=== PATIENT | male | born 1940 | race Caucasian/White ===

== ENCOUNTER → 2016-09-27 | Outpatient (CLI) | payer MEDICARE, BC ==
[2016-09-27 12:46] LABS: Blood Urea Nitrogen 16 mg/dL (9-20); Non-African American GFR(MDRD) >60 (>60 ml/min/1.73 sqM)
--- NOTE | 2016-09-27 14:15 | CT ---
EXAMINATION TYPE: CT ChestAbdPelvis w con DATE OF EXAM: 09/27/2016 2:01 PM COMPARISON: MRCP July 29, 2016. PET/CT June 05, 2016. HISTORY: Pancreatic CA progress study. CT DLP: 2277 mGycm. Automated Exposure Control for Dose Reduction was Utilized. CONTRAST: CT scan of the thorax, abdomen and pelvis is performed with IV Contrast, patient injected with 100 mL of Omnipaque 300. FINDINGS: LUNGS: Right midlung nodule is redemonstrated slightly larger in size measuring 1.3 x 0.8 cm on axial image 17. There is background of mild emphysematous change. New 6 x 5 mm scarlike opacity posterior right lower lobe on axial image 27 is noted. Respiratory motion artifact is seen making evaluation espinoza boptimal. There is linear scarring and/or atelectasis in the right middle lobe near diaphragm and ant erior right lower lobe redemonstrated more prominent versus prior. Additional linear scarring and/or atelectasis in both lung bases along diaphragm is present. No new left-sided nodularity or mass is id entified. No pleural effusion or pneumothorax is seen bilaterally. MEDIASTINUM: There is redemonstration of abnormal right hilar mass or adenopathy measuring 2.2 x 1.9 cm on axial image 24 felt stable or slightly larger versus prior exam. No new suspicious thoracic lym ph nodes are seen. No cardiomegaly or pericardial effusion is seen. Three-vessel coronary artery c alcification is redemonstrated. OTHER: No additional significant abnormality is seen. LIVER/GB: Liver is low dense consistent with fatty infiltration. PANCREAS: No suspicious pancreatic mass or ductal dilatation is seen. SPLEEN: Tiny nodular splenule anterior to spleen is noted. ADRENALS: No significant abnormality is seen. KIDNEYS: There is 1.5 cm simple appearing cysts or pole level right kidney redemonstrated. Mild nonsp ecific perinephric fat stranding likely on basis of chronic medical renal disease is noted. BOWEL: Prominent sigmoid colonic diverticulosis is again seen. GENITAL ORGANS: Central zone calcifications are seen in slightly prominent prostate gland bulging on bladder base, clinical correlation for BPH is advised.. LYMPH NODES: No greater than 1cm abdominal or pelvic lymph nodes are appreciated. OSSEOUS STRUCTURES: There is prominent disc space narrowing with endplate sclerosis and mild to moder ate spurring left L4-L5 level. OTHER: There is atherosclerotic change of aorta and branch vessels. Aneurysm measuring up to 3.4 cm i n transverse diameter on axial image 79 is redemonstrated. Small fat-containing umbilical hernia is r edemonstrated. IMPRESSION: Right midlung nodule and right hilar adenopathy redemonstrated both felt slightly larger versus prior PET/CT. A new 6 x 5 mm scarlike opacity posterior right lower lobe is noted and can be f ollowed. No new suspicious mass or adenopathy is otherwise clearly evident. Pancreas felt within norm al limits.
== END | disposition home or self-care (01) ==
LOC: RADCTMAIN 11:15
PROVIDERS: ATTEND Internal Medicine Hematology & Oncology
DX: C34.90 Malignant neoplasm of unspecified part of unspecified bronchus or lung (principal); C25.9 Malignant neoplasm of pancreas, unspecified
CPT/HCPCS: 82565; 84520; 71260; 74177; 36415; Q9967

== ENCOUNTER → 2016-11-22 | Outpatient (CLI) | payer MEDICARE, BC ==
[2016-11-22 09:51] LABS: Blood Urea Nitrogen 15 mg/dL (9-20); Non-African American GFR(MDRD) >60 (>60 ml/min/1.73 sqM)
--- NOTE | 2016-11-22 11:55 | CT ---
EXAMINATION TYPE: CT ChestAbdPelvis w con DATE OF EXAM: 11/22/2016 11:38 AM COMPARISON: CT cap September 27, 2016. PET CT June 05, 2016. HISTORY: Patient has no complaints at time of service. Follow up study for known lung CA. CT DLP: 1601.2 mGycm. Automated Exposure Control for Dose Reduction was Utilized. CONTRAST: CT scan of the thorax, abdomen and pelvis is performed with IV Contrast, patient injected with 100 mL of Omnipaque 300. FINDINGS: LUNGS: Nodule laterally right upper lung is stable measuring 14 x 9 mm on axial image 19. There is ba ckground of mild emphysematous change with apical subpleural reticulation and bleb formation. There i s additional linear scarring or atelectasis in both lung bases near diaphragm redemonstrated. Slightl y more nodular consolidation anteriorly right middle lobe near diaphragm is felt stable or slightly m ore prominent on axial image 40 and can be followed. No new parenchymal nodule or mass is identified bilaterally. However there are new suspicious pleural-based nodules indicating the chest wall anterol aterally in the right midlung, for reference lesion measures 1.4 x 1.3 cm on axial image 26. No pleur al effusion or pneumothorax is present. MEDIASTINUM: There is persistent abnormal right hilar lymph node measuring 2.2 x 1.8 cm felt stable from prior exam. Coronary artery calcification is redemonstrated. No cardiomegaly or pericardial ef fusion is seen. OTHER: No additional significant abnormality is seen. LIVER/GB: Liver remains low dense suggesting fatty infiltration. PANCREAS: No significant abnormality is seen. SPLEEN: No significant abnormality is seen. ADRENALS: No significant abnormality is seen. KIDNEYS: There is simple appearing 1.5 cm cyst lower pole level right kidney redemonstrated laterally on image 81 felt stable. BOWEL: Oral contrast reaches level of sigmoid colon. There is no suspicious small or large bowel dila tation seen. Prominent Sigmoid colonic diverticulosis is redemonstrated, there is no CT evidence for acute diverticulitis. Normal-appearing appendix is seen from cecum. GENITAL ORGANS: Central zone calcifications are seen in upper limits of normal size prostate gland. LYMPH NODES: No greater than 1cm abdominal or pelvic lymph nodes are appreciated. OSSEOUS STRUCTURES: There are subchondral cystic change and joint space loss in both hips. There is f acet arthropathy lower lumbar levels. There is multilevel spurring in the spine seen. OTHER: There is moderate to severe plaque in the aorta extending into pelvic branch vessels. Ectasia is present. There is focal aneurysm just above bifurcation measuring 3.4 x 3.2 cm on axial image 81 r edemonstrated. IMPRESSION: Stable right upper lobe nodule and right hilar malignant adenopathy. New pleural-based me tastatic lesions in the right lung are felt present however.
== END ==
LOC: RADCTMAIN 09:13
PROVIDERS: ATTEND Internal Medicine Hematology & Oncology
DX: C78.01 Secondary malignant neoplasm of right lung (principal)
CPT/HCPCS: 82565; 84520; 71260; 74177; 36415; Q9967

== ENCOUNTER → 2017-01-18 | Outpatient (CLI) | payer MEDICARE, BC ==
--- NOTE | 2017-01-18 13:04 | XR ---
EXAMINATION TYPE: XR chest 2V DATE OF EXAM: 01/18/2017 COMPARISON: CT cap November 22, 2016. Chest x-ray July 05, 2016. HISTORY: Shortness of breath, history of right-sided partial pneumonectomy TECHNIQUE: Frontal and lateral views of the chest are obtained. FINDINGS: There is right basilar scarring redemonstrated. There is no new suspicious focal air space opacity, pleural effusion, or pneumothorax seen. Pleural-based nodularity and suspicious right hilar fullness on recent CT is less well seen on plain films and is worrisome for neoplasm. The cardiac destiny houette size is stable and within normal limits. The osseous structures are intact. IMPRESSION: No acute cardiopulmonary process.
--- NOTE | 2017-01-19 09:59 | ECHOF ---
Referral Reason:Shortness of breath R05.05, R05 Cough MEASUREMENTS -------- HEIGHT: 165.1 cm WEIGHT: 95.3 kg BP: RVIDd: 3.1 cm (< 3.3) IVSd: 1.3 cm (0.6 - 1.1) LVIDd: 3.6 cm (3.9 - 5.3) LVPWd: 1.3 cm (0.6 - 1.1) IVSs: 1.7 cm LVIDs: 3.1 cm LVPWs: 0.9 cm LA Diam: 3.8 cm (2.7 - 3.8) LAESV Index (A-L): 19.52 ml/m Ao Diam: 3.1 cm (2.0 - 3.7) AV Cusp: 1.9 cm (1.5 - 2.6) LA Diam: 4.0 cm (2.7 - 3.8) MV EXCURSION: 20.651 mm (> 18.000) MV EF SLOPE: 72 mm/s (70 - 150) EPSS: 0.5 cm MV E León: 0.32 m/s MV DecT: 330 ms MV A León: 0.90 m/s MV E/A Ratio: 0.35 RAP: 5.00 mmHg RVSP: 22.41 mmHg FINDINGS -------- Sinus rhythm. This was a technically adequate study. There is mild concentric left ventricular hypertrophy. Overall left ventricular systolic function is normal with, an EF between 65 - 70 %. The right ventricle is normal in size. Normal LA size by volume 22+/-6 ml/m2. The right atrial size is normal. There is mild aortic valve sclerosis. There is no evidence of aortic regurgitation. Mild mitral annular calcification present. Mild mitral regurgitation is present. Mild tricuspid regurgitation present. There is no evidence of pulmonary hypertension. The right ventricular systolic pressure, as measured by Doppler, is 22.41mmHg. There is no pulmonic regurgitation present. The aortic root size is normal. There is no pericardial effusion. CONCLUSIONS -------- 1. There is mild concentric left ventricular hypertrophy. 2. Overall left ventricular systolic function is normal with, an EF between 65 - 70 %. 3. There is mild aortic valve sclerosis. 4. Mild mitral annular calcification present. 5. Mild mitral regurgitation is present. 6. Mild tricuspid regurgitation present. 7. There is no evidence of pulmonary hypertension. 8. The right ventricular systolic pressure, as measured by Doppler, is 22.41mmHg. PRINCIPAL CONSULTANT: Elizabeth Choudhury RDCS
== END | disposition home or self-care (01) ==
LOC: RADECHMAIN 12:44
PROVIDERS: ATTEND Internal Medicine
DX: R05 Cough (principal); R06.02 Shortness of breath; I51.7 Cardiomegaly; I35.0 Nonrheumatic aortic (valve) stenosis; I07.2 Rheumatic tricuspid stenosis and insufficiency; I38 Endocarditis, valve unspecified
CPT/HCPCS: 71020; 93306

== ENCOUNTER → 2017-03-07 | Outpatient (CLI) | payer MEDICARE, BC ==
[2017-03-07 12:00] LABS: Blood Urea Nitrogen 11 mg/dL (9-20); Non-African American GFR(MDRD) >60 (>60 ml/min/1.73 sqM)
--- NOTE | 2017-03-07 13:57 | CT ---
EXAMINATION TYPE: CT ChestAbdPelvis w con DATE OF EXAM: 03/07/2017 COMPARISON: CT cap November 22, 2016. PET/CT June 05, 2016 HISTORY: Follow up to lung CA CT DLP: 2148 mGycm. Automated Exposure Control for Dose Reduction was Utilized. CONTRAST: CT scan of the thorax, abdomen and pelvis is performed with oral and with IV Contrast, patient inject ed with 100 mL of Omnipaque 300. FINDINGS: LUNGS: Focal parenchymal scarring in the right middle lobe near diaphragm is redemonstrated. Just sup erior to this there is enlarging pleural or chest wall based lesion or 2 adjacent lesions measuring 3.2 x 2.0 cm on axial image 24 in the anterolateral right chest wall. There are new adjacent smaller nodules lateral and inferior to this which appear to correlate with possible linear scar or site of surgery. The spiculated nodule right upper lobe measuring 1.5 x 0.9 cm on axial image 18 is not significantly changed from prior study. There is background mild emphysematous change with mild apical scarring redemonstrated. MEDIASTINUM: There is persistent enlarged right suprahilar lymph node with central necrosis measurin g 2.1 x 1.9 cm on axial image 26 not significantly changed from prior study. Prominent right hilar ly mph node inferior lateral to this on axial image 30 is stable. There is redemonstration of prominent but subcentimeter paratracheal and AP window lymph nodes. No cardiomegaly or pericardial effusion is seen. Coronary artery calcification is redemonstrated. OTHER: No additional significant abnormality is seen. LIVER/GB: Liver remains diffusely low dense consistent with fatty infiltration. PANCREAS: No significant abnormality is seen. SPLEEN: No significant abnormality is seen. ADRENALS: No significant abnormality is seen. KIDNEYS: There is a 1.5 cm simple appearing cyst laterally lower pole level right kidney redemonstrat ed. BOWEL: The oral contrast reaches level of sigmoid colon. Sigmoid colonic diverticulosis is redemonstr ated without convincing CT evidence for acute diverticulitis. There is no suspicious small or large b owel dilatation seen. GENITAL ORGANS: Central zone calcifications are seen in normal size prostate gland. LYMPH NODES: No greater than 1cm abdominal or pelvic lymph nodes are appreciated. OSSEOUS STRUCTURES: Osseous structures are demineralized. Multilevel spurring in the spine is present . There is moderate joint space loss with subchondral cystic change in both hips. OTHER: There is moderate atherosclerotic change seen and ectatic descending aorta. Aorta measures up to 3.5 cm in diameter on axial image 81 just above bifurcation, not significantly changed from prior study. IMPRESSION: Further progression in pleural or chest wall based masses with chest wall spread inferior ly and laterally in a linear fashion is suggestive of tumor spread along incision site of surgery. Cl inical correlation advised. Other findings stable a right upper lung spiculated nodule and right supr ahilar metastatic adenopathy.
== END | disposition home or self-care (01) ==
LOC: RADCTMAIN 11:07
PROVIDERS: ATTEND Internal Medicine Hematology & Oncology
DX: C34.90 Malignant neoplasm of unspecified part of unspecified bronchus or lung (principal); C78.01 Secondary malignant neoplasm of right lung; C25.8 Malignant neoplasm of overlapping sites of pancreas
CPT/HCPCS: 82565; 84520; 71260; 74177; 36415; Q9967

== ENCOUNTER 2017-04-07 08:43 | Day surgery (SDC) | payer MEDICARE, BC ==
[~2017-04-07 08:43] MED LIST: HYDROmorphone 1 MG/ML 1 ML SYRINGE IVP PRN
[2017-04-07 09:25] LABS: Mean Platelet Volume 8.8
[2017-04-07 09:29] LABS: INR 1.1 (<1.2)
[2017-04-07] MEDS ORDERED: ALPRAZolam 0.25 MG TAB PO STA (09:33)
[2017-04-07 10:07] VITALS: TEMP 97.8
[2017-04-07 10:38] VITALS: RESP 14
--- NOTE | 2017-04-07 11:03 | XR ---
EXAMINATION TYPE: XR chest 1V DATE OF EXAM: 04/07/2017 COMPARISON: NONE HISTORY: CT chest abdomen pelvis dated 03/07/2017 and chest radiograph dated 01/18/2017. TECHNIQUE: Single frontal view of the chest is obtained. FINDINGS: There is no evidence of postprocedural pneumothorax. Chronic pleural parenchymal scarring i s seen at the right lung base with tethering of the right hemidiaphragm. Right hilar fullness relates to the known malignant adenopathy. Pleural-based nodularity is not well appreciated on this examinat ion as seen on the prior CT chest dated 03/07/2017. There is no focal air space opacity, pleural effus ion, or pneumothorax seen. The cardiac silhouette size is within normal limits. The osseous struct ures are intact. The known right upper lobe spiculated mass is poorly defined but appears to overlie the third anterior rib within the right upper lobe. IMPRESSION: 1. No postprocedural pneumothorax. 2. Chronic right pleural parenchymal scarring with hemidiaphragm elevation and tethering. 3. Right hilar fullness relating to the known malignant adenopathy. 4. Poor visualization of the known pleural metastasis and spiculated right upper lobe pulmonary nodul e, better seen on the CT dated 03/07/2017.
[2017-04-07 11:28] VITALS: BP 122/70; PULSE 62
--- NOTE | 2017-04-07 11:34 | CT ---
EXAMINATION TYPE: CT guided FNA DATE OF EXAM: 04/07/2017 HISTORY: Chest wall mass COMPARISON: CT 03/07/2017 Maximal barrier technique was utilized. The skin overlying a suitable path to the lesion was localiz ed using CT and the overlying skin was prepped and draped. Lidocaine used for local anesthesia. A s kin eugenia made with a scalpel. Using CT guidance, access was gained to the lesion with a 25-gauge nee dle x2, 21-gauge needle x1, 18-gauge needle x1. Aspirated specimen submitted to cytology. 4 passes were performed in all. Following the procedure no immediate complications. The patient is discharg ed in stable condition. Hemostasis achieved. IMPRESSION: SUCCESSFUL CT GUIDED BIOPSY. PATHOLOGY PENDING. THIS PROCEDURE WAS PERFORMED BY THE UNDERSIGNED.
== END 2017-04-07 11:30 | disposition home or self-care (01) ==
LOC: RADPROMAIN 08:43
PROVIDERS: ATTEND Thoracic Surgery (Cardiothoracic Vascular Surgery)
DX: C79.89 Secondary malignant neoplasm of other specified sites (principal); R91.1 Solitary pulmonary nodule; R59.0 Localized enlarged lymph nodes; L04.8 Acute lymphadenitis of other sites; J98.4 Other disorders of lung
CPT/HCPCS: 88305; 88173; 85049; 85610; 88342; 88341; 96374; 71010; 77012; 10022; J1170

== ENCOUNTER → 2017-05-14 | Outpatient (CLI) | payer MEDICARE, BC ==
--- NOTE | 2017-05-15 20:51 | PE ---
Nuclear medicine PET/CT HISTORY: Pancreatic carcinoma Patient received 14.2 mCi F-18 FDG intravenously and delayed scanning performed from the skull base t o the mid thighs. Localization and attenuation correction CT scan was performed. Correlation to CT chest abdomen pelvis 03/07/2017 Neck and chest: There is a right upper lobe lung nodule measuring approximately 2 cm with some spicul ation in the margins. Associated hypermetabolic uptake, SUV is 4.8. Chest wall mass is noted extendin g from the pleural margin into the subcutaneous fat, retropectoral region, masses irregularly shaped, multiple nodules are suspected, SUV approximately 6-17. Small right hilar node shows SUV 4. Enlarged right hilar node shows SUV 7.5. The heart is enlarged. There are coronary artery calcifications. Abdomen pelvis: No suspicious hypermetabolic uptake. Liver shows low attenuation likely due to fatty infiltration. No retroperitoneal adenopathy. No suspicious hypermetabolic uptake. Infrarenal abdomina l aorta measures 4 cm. Common iliac arteries are ectatic proximally measuring approximately 2 cm on t he right and on the left. Diverticular change noted within the sigmoid colon. No evident pelvic adeno billy. Osseous structures: Degenerative disc disease, facet arthropathy noted, disc herniation present in L5 -S1. IMPRESSION: Findings compatible with metastatic disease. Abdominal aortic aneurysm. Diverticulosis. D egenerative disc disease. Additional findings above.
== END | disposition home or self-care (01) ==
LOC: RADPETMAIN 11:45
PROVIDERS: ATTEND Internal Medicine Hematology & Oncology
DX: C25.8 Malignant neoplasm of overlapping sites of pancreas (principal); I71.4 Abdominal aortic aneurysm, without rupture; K57.90 Diverticulosis of intestine, part unspecified, without perforation or abscess without bleeding
CPT/HCPCS: 78815; A9552

== ENCOUNTER → 2017-07-20 | Outpatient (CLI) | payer MEDICARE, BC ==
[2017-07-20 12:20] LABS: Blood Urea Nitrogen 15 mg/dL (9-20); Non-African American GFR(MDRD) >60 (>60 ml/min/1.73 sqM)
--- NOTE | 2017-07-20 14:08 | CT ---
EXAMINATION TYPE: CT ChestAbdPelvis w con DATE OF EXAM: 07/20/2017 COMPARISON: 03/07/2017 HISTORY: Lung cancer CT DLP: 1882 mGycm CONTRAST: CT scan of the chest, abdomen and pelvis is performed with Oral Contrast and with IV Contrast, patien t injected with 100 ml mL of Omnipaque 300. CT Chest: LUNGS: Spiculated nodule right upper lobe currently measures 1.7 x 1.3 cm versus 1.5 x 0.9 cm. David lateral right-sided chest wall mass measures 4.5 x 4.2 cm versus 3.3 x 2.0 cm. Several adjacent enlar ged lymph nodes are noted adjacent to the chest wall which have also increased in size measuring up t o 1.9 cm. 5 mm nodule axial image 36 is unchanged from prior study. Postoperative change or parenchym al scarring right lower lobe noted. Prominent reticulonodular appearance at the lung bases could refl ect early interstitial spread of malignancy. MEDIASTINUM: Thoracic aorta is of normal caliber. The heart is not enlarged. Right tracheobronchial adenopathy measures 2.4 cm greatest dimension versus 2.1 cm previously. No additional mediastinal ad enopathy appreciated at this time. HILAR STRUCTURES:Additional right hilar adenopathy present measuring 1.2 cm. Subcentimeter left-sided hilar adenopathy. OTHER: No significant abnormality. CONTRAST CT ABDOMEN AND PELVIS FINDINGS: LIVER/GB: Hepatic steatosis without space-occupying hepatic lesion. No calcified gallstones. No sp gucci occupying hepatic lesion. Biliary tree is of normal caliber. PANCREAS: No inflammation. No distinct mass. SPLEEN: No splenic enlargement. No lesion seen. ADRENALS: No nodule. No thickening. KIDNEYS/BLADDER: No hydronephrosis. No nephrolithiasis. Stable renal cystic changes without solid m ass.. BOWEL: Normal appendix. Normal bowel caliber. No inflammation. Severe sigmoid diverticulosis withou t diverticulitis. GENITAL ORGANS: No gross abnormality. LYMPH NODES: No greater than 1cm abdominal or pelvic lymph nodes are appreciated. AORTA: Infrarenal abdominal aortic aneurysm measuring 3.7 cm AP dimension. Mural thickening noted. OSSEOUS STRUCTURES: Stable. OTHER: No significant additional abnormality is seen. IMPRESSION: 1. Enlarging right-sided invasive chest wall mass. 2. Enlarging right axillary adenopathy. 3 enlarging spiculated nodule right upper lobe. 4. Mild enlargement in right tracheobronchial and right hilar adenopathy. 5. Reticulonodular prominence at the lung bases may reflect interstitial spread of malignancy.
== END | disposition home or self-care (01) ==
LOC: RADCTMAIN 11:33
PROVIDERS: ATTEND Internal Medicine Hematology & Oncology
DX: R59.0 Localized enlarged lymph nodes (principal); R91.1 Solitary pulmonary nodule; M79.89 Other specified soft tissue disorders; C78.01 Secondary malignant neoplasm of right lung
CPT/HCPCS: 82565; 84520; 71260; 74177; 36415; Q9967

== ENCOUNTER 2018-07-30 14:47 | Inpatient (IN) | payer MEDICARE, BC ==
[2018-07-30] MEDS ORDERED: IPRATROPIUM-ALBUTEROL 3 ML NEB INHALATION STA (15:23)
[2018-07-30] MEDS ORDERED: methylPREDNISolone SOD SUCCI 125 MG/2 ML VIAL IV STA (15:23)
--- NOTE | 2018-07-30 15:28 | ED ---
Weakness HPI - General Source: patient, family, RN notes reviewed Mode of arrival: ambulatory Limitations: no limitations - History of Present Illness MD Complaint: generalized weakness, lack of energy <Young Stanton - Last Filed: 07/30/18 17:20> <Harmeet Coats - Last Filed: 07/30/18 18:35> - General Chief complaint: Weakness Stated complaint: Weakness Time Seen by Provider: 07/30/18 15:14 - History of Present Illness Initial comments: This is a 78-year-old male history of lung cancer prostate cancer abdominal aortic aneurysm COPD who still smokes who presents with complaints of feeling wiped out he states he has had sweats cough of yellow and white phlegm fevers and chills he was started on amoxicillin and put after 2 doses because of diarrhea he was placed on azithromycin had the same effect after 2 doses. He still feeling better this all started about 3 weeks ago. He has exertional dyspnea. Some lower back pain. Decreased oral intake. No other modifying factors at this time (Young Stanton) - Related Data Home Medications Medication Instructions Recorded Confirmed Ascorbic Acid [Vitamin C] 500 mg PO DAILY 06/23/16 07/30/18 Aspirin 81 mg PO DAILY 06/23/16 07/30/18 Calcium Carbonate/Vitamin D3 1 tab PO BID 06/23/16 07/30/18 [Caltrate 600 Plus D3 Tablet] Fenofibrate Nanocrystallized 145 mg PO Q48H 06/23/16 07/30/18 [Fenofibrate] Omeprazole [PriLOSEC] 20 mg PO AC-BID 06/23/16 07/30/18 Ultra K2-D3 1 tab PO DAILY 06/23/16 07/30/18 cycloSPORINE [Restasis] 1 applicator BOTH EYES BID 06/23/16 07/30/18 Albuterol Nebulized [Ventolin 2.5 mg INHALATION DAILY PRN 07/30/18 07/30/18 Nebulized] L.acidoph,Paracasei, B.lactis 1 tab PO DAILY 07/30/18 07/30/18 [Probiotic] Simvastatin 40 mg PO DAILY 07/30/18 07/30/18 Turmeric Root Extract [Turmeric] 500 mg PO DAILY 07/30/18 07/30/18 Vitamin B Complex 1 tab PO DAILY 07/30/18 07/30/18 Allergies Allergy/AdvReac Type Severity Reaction Status Date / Time amoxicillin AdvReac Unknown Verified 07/30/18 15:18 azithromycin AdvReac Nausea & Verified 07/30/18 15:18 Vomiting & Diarrhea Review of Systems ROS Other: All systems not noted in ROS Statement are negative. <Young Stanton - Last Filed: 07/30/18 17:20> ROS Other: All systems not noted in ROS Statement are negative. <Harmeet Coats - Last Filed: 07/30/18 18:35> ROS Statement: Those systems with pertinent positive or pertinent negative responses have been documented in the HPI. Past Medical History Past Medical History: Cancer, COPD, GERD/Reflux, Osteoarthritis (OA), Skin Disorder Additional Past Medical History / Comment(s): Hx of persistant cough and lung cancer. psoriasis, Lung Cancer, wears brace on right foot all the time for mobility, has aortic aneurysm-monitored by Nan, rt lung nodule. History of Any Multi-Drug Resistant Organisms: MRSA Date of last positivie culture/infection: 2012 MDRO Source:: left elbow Past Surgical History: Hernia Repair, Joint Replacement, Orthopedic Surgery Additional Past Surgical History / Comment(s): Hx of Rt wedge resection and biopsy- "found cancer in nodule rt lower lung" Jun 2016. Repair deviated septum , right knee replaced multiple surg. right foot Past Anesthesia/Blood Transfusion Reactions: No Reported Reaction Past Psychological History: Anxiety Smoking Status: Current every day smoker Past Alcohol Use History: Occasional Past Drug Use History: None Reported - Past Family History Father Brother(s) Family Medical History: Cancer Additional Family Medical History / Comment(s): FAther lung ca, 1 brother lung ca, 1 brotheer renal ca. <Young Stanton - Last Filed: 07/30/18 17:20> General Exam Limitations: no limitations General appearance: alert, in no apparent distress Head exam: Present: atraumatic, normocephalic, normal inspection Eye exam: Present: normal appearance, PERRL, EOMI. Absent: scleral icterus, conjunctival injection, periorbital swelling ENT exam: Present: mucous membranes dry Neck exam: Present: normal inspection, full ROM. Absent: tenderness, meningismus, lymphadenopathy Respiratory exam: Present: rhonchi, decreased breath sounds. Absent: respiratory distress, wheezes, rales, stridor Cardiovascular Exam: Present: normal rhythm, tachycardia, normal heart sounds. Absent: systolic murmur, diastolic murmur, rubs, gallop, clicks GI/Abdominal exam: Present: soft, normal bowel sounds. Absent: distended, tenderness, guarding, rebound, rigid Extremities exam: Present: full ROM, normal capillary refill, other (Right foot prosthetic device noted with a lift up for his shoes). Absent: tenderness, pedal edema, joint swelling, calf tenderness Back exam: Present: normal inspection Neurological exam: Present: alert, oriented X3, CN II-XII intact Psychiatric exam: Present: normal affect, normal mood Skin exam: Present: warm, dry, intact, normal color. Absent: rash <Young Stanton - Last Filed: 07/30/18 17:20> <Harmeet Coats - Last Filed: 07/30/18 18:35> - General Exam Comments Initial Comments: This is a well-developed well-nourished awake alert oriented 3 male (Young Stanton) Course <Young Stanton - Last Filed: 07/30/18 17:20> <Harmeet Coats - Last Filed: 07/30/18 18:35> Vital Signs 07/30/18 07/30/18 07/30/18 14:50 15:19 15:42 Temperature 98.4 F 98.9 F Pulse Rate 114 H 117 H 114 H Respiratory 18 20 Rate Blood Pressure 153/80 123/80 O2 Sat by Pulse 97 98 Oximetry 07/30/18 15:51 Temperature Pulse Rate 116 H Respiratory Rate Blood Pressure O2 Sat by Pulse Oximetry - Reevaluation(s) Reevaluation #1: 07/30/18 17:20 The patient's care is endorsed to Dr. Coats at her shift change (Young Stanton) Medical Decision Making - Lab Data Result diagrams: 07/30/18 15:50 07/30/18 15:50 <Young Stanton - Last Filed: 07/30/18 17:20> - Lab Data Result diagrams: 07/30/18 15:50 07/30/18 15:50 - Radiology Data Radiology results: report reviewed (Computed tomography scan negative for pulmonary embolism. There is right-sided inflammatory change.), image reviewed (Abdominal x-ray shows no acute process. Chest x-ray shows atelectasis versus infiltrate right sided.) <Harmeet Coats - Last Filed: 07/30/18 18:35> - Medical Decision Making Patient reevaluated. Patient and family updated. Patient has failed 2 doses of outpatient antibiotics. Dr. Bragg has been paged for admission for hospital call. Patient has previously [facility] - Lab Data Lab Results 07/30/18 07/30/18 07/30/18 Range/Units 15:50 15:50 15:50 WBC 7.9 (3.8-10.6) k/uL RBC 4.49 (4.30-5.90) m/uL Hgb 13.6 (13.0-17.5) gm/dL Hct 41.4 (39.0-53.0) % MCV 92.1 (80.0-100.0) fL MCH 30.4 (25.0-35.0) pg MCHC 33.0 (31.0-37.0) g/dL RDW 14.1 (11.5-15.5) % Plt Count 337 (150-450) k/uL Neutrophils % 78 % Lymphocytes % 12 % Monocytes % 6 % Eosinophils % 2 % Basophils % 0 % Neutrophils # 6.2 (1.3-7.7) k/uL Lymphocytes # 0.9 L (1.0-4.8) k/uL Monocytes # 0.5 (0-1.0) k/uL Eosinophils # 0.1 (0-0.7) k/uL Basophils # 0.0 (0-0.2) k/uL PT (9.0-12.0) sec INR (<1.2) APTT (22.0-30.0) sec D-Dimer (<0.60) mg/L FEU Sodium 136 L (137-145) mmol/L Potassium 4.9 (3.5-5.1) mmol/L Chloride 102 (98-107) mmol/L Carbon Dioxide 22 (22-30) mmol/L Anion Gap 12 mmol/L BUN 20 (9-20) mg/dL Creatinine 0.62 L (0.66-1.25) mg/dL Est GFR (CKD-EPI)AfAm >90 (>60 ml/min/1.73 sqM) Est GFR (CKD-EPI)NonAf >90 (>60 ml/min/1.73 sqM) Glucose 108 H (74-99) mg/dL Calcium 10.2 (8.4-10.2) mg/dL Magnesium 1.9 (1.6-2.3) mg/dL Total Bilirubin 0.5 (0.2-1.3) mg/dL AST 58 (17-59) U/L ALT 32 (21-72) U/L Alkaline Phosphatase 249 H (38-126) U/L Total Creatine Kinase 96 (55-170) U/L CK-MB (CK-2) 2.3 (0.0-2.4) ng/mL CK-MB (CK-2) Rel Index 2.4 Troponin I <0.012 (0.000-0.034) ng/mL NT-Pro-B Natriuret Pep pg/mL Total Protein 7.0 (6.3-8.2) g/dL Albumin 3.8 (3.5-5.0) g/dL 07/30/18 07/30/18 Range/Units 15:50 15:50 WBC (3.8-10.6) k/uL RBC (4.30-5.90) m/uL Hgb (13.0-17.5) gm/dL Hct (39.0-53.0) % MCV (80.0-100.0) fL MCH (25.0-35.0) pg MCHC (31.0-37.0) g/dL RDW (11.5-15.5) % Plt Count (150-450) k/uL Neutrophils % % Lymphocytes % % Monocytes % % Eosinophils % % Basophils % % Neutrophils # (1.3-7.7) k/uL Lymphocytes # (1.0-4.8) k/uL Monocytes # (0-1.0) k/uL Eosinophils # (0-0.7) k/uL Basophils # (0-0.2) k/uL PT 10.3 (9.0-12.0) sec INR 1.0 (<1.2) APTT 26.1 (22.0-30.0) sec D-Dimer 8.05 H (<0.60) mg/L FEU Sodium (137-145) mmol/L Potassium (3.5-5.1) mmol/L Chloride (98-107) mmol/L Carbon Dioxide (22-30) mmol/L Anion Gap mmol/L BUN (9-20) mg/dL Creatinine (0.66-1.25) mg/dL Est GFR (CKD-EPI)AfAm (>60 ml/min/1.73 sqM) Est GFR (CKD-EPI)NonAf (>60 ml/min/1.73 sqM) Glucose (74-99) mg/dL Calcium (8.4-10.2) mg/dL Magnesium (1.6-2.3) mg/dL Total Bilirubin (0.2-1.3) mg/dL AST (17-59) U/L ALT (21-72) U/L Alkaline Phosphatase (38-126) U/L Total Creatine Kinase (55-170) U/L CK-MB (CK-2) (0.0-2.4) ng/mL CK-MB (CK-2) Rel Index Troponin I (0.000-0.034) ng/mL NT-Pro-B Natriuret Pep 134 pg/mL Total Protein (6.3-8.2) g/dL Albumin (3.5-5.0) g/dL Disposition <Young Stanton - Last Filed: 07/30/18 17:20> Is patient prescribed a controlled substance at d/c from ED?: No Decision Time: 18:35 <Harmeet Coats - Last Filed: 07/30/18 18:35> Clinical Impression: Pneumonia, COPD (chronic obstructive pulmonary disease) Disposition: ADMITTED IP TO THIS HOSP Referrals: Nonstaff,Physician [REFERRING] - 1-2 days
[2018-07-30 16:12] LABS: Basophils % (A) 0 %; Eosinophils # (A) 0.1 k/uL (0-0.7); Eosinophils % (A) 2 %; HCT 41.4 % (39.0-53.0); HGB 13.6 gm/dL (13.0-17.5); Lymphocytes # (A) 0.9 k/uL (1.0-4.8); Lymphocytes % (A) 12 %; MCH 30.4 pg (25.0-35.0); MCV 92.1 fL (80.0-100.0); Mean Platelet Volume 7.2; Monocytes # (A) 0.5 k/uL (0-1.0); Monocytes % (A) 6 %; Neutrophils # (A) 6.2 k/uL (1.3-7.7); Neutrophils % (A) 78 %; Platelet Count 337 k/uL (150-450); RBC 4.49 m/uL (4.30-5.90); RDW 14.1 % (11.5-15.5); WBC 7.9 k/uL (3.8-10.6)
[2018-07-30 16:18] LABS: ALT 32 U/L (21-72); AST 58 U/L (17-59); Albumin 3.8 g/dL (3.5-5.0); Alkaline Phosphatase 249 U/L (38-126); Anion Gap 12 mmol/L; Blood Urea Nitrogen 20 mg/dL (9-20); Calcium 10.2 mg/dL (8.4-10.2); Carbon Dioxide 22 mmol/L (22-30); Chloride 102 mmol/L (98-107); Glucose 108 mg/dL (74-99); Magnesium 1.9 mg/dL (1.6-2.3); Potassium 4.9 mmol/L (3.5-5.1); Sodium 136 mmol/L (137-145); Total Bilirubin 0.5 mg/dL (0.2-1.3)
[2018-07-30] MEDS: SODIUM CHLORIDE 0.9% 1,000 ML IV STA (16:23)
[2018-07-30 16:26] LABS: Creatine Kinase 96 U/L (55-170)
[2018-07-30 16:29] LABS: Partial Thromboplastin Time 26.1 sec (22.0-30.0); Prothrombin Time 10.3 sec (9.0-12.0)
[2018-07-30 16:34] LABS: D-Dimer 8.05 mg/L FEU (<0.60)
[2018-07-30 16:39] LABS: Creatine Kinase MB 2.3 ng/mL (0.0-2.4); Troponin I <0.012 ng/mL (0.000-0.034)
--- NOTE | 2018-07-30 16:44 | XR ---
EXAMINATION TYPE: XR abdomen 2V DATE OF EXAM: 07/30/2018 COMPARISON: NONE HISTORY: Cough and chills TECHNIQUE: 3 views FINDINGS: Supine and upright views were obtained and show no sign of intestinal obstruction or pneumo peritoneum. Fecal pattern is normal. There is a 3 mm calcification over the left kidney. There is ronel nt calcification over the right kidney. Lung bases are clear of consolidation. There is no evidence o f a mass. IMPRESSION: Nonacute abdomen. Bilateral renal calculi.
--- NOTE | 2018-07-30 16:47 | XR ---
EXAMINATION TYPE: XR chest 2V DATE OF EXAM: 07/30/2018 COMPARISON: 04/07/2017 HISTORY: Cough and chills TECHNIQUE: Frontal and lateral views of the chest are obtained. FINDINGS: There is some coarse infiltrate in the right lower lobe. There is no heart failure. I see no pneumothorax. Trachea is midline. Heart size is normal. There are calcified granulomata at the pul monary donal. IMPRESSION: There is increased patchy infiltrate and atelectasis in the right lung compared to old e xam. No evidence of a pneumothorax. No heart failure. There are probably partly fibrotic changes.
--- NOTE | 2018-07-30 18:15 | CT ---
EXAMINATION TYPE: CT angio chest DATE OF EXAM: 07/30/2018 5:39 PM COMPARISON: 07/20/2017 HISTORY: Elevated d-dimer and history of abdominal aortic aneurysm. CT DLP: 431.4 mGycm Automated exposure control for dose reduction was used. CONTRAST: CTA scan of the thorax is performed with IV Contrast, patient injected with 84ml mL of Isovue 370, pu lmonary embolism protocol. There are 3-D post processed images.. FINDINGS: There is mild pulmonary emphysema. There is patchy subpleural reticular and nodular infiltrates in th e right upper lobe and the right lower lobe. I see no suspicious pulmonary mass. Heart size is normal . There is no pericardial effusion. There is no pleural effusion. I see no filling defects in the pul monary arteries. There is 1.5 x 1 cm enlarged right bronchial lymph node. There is no mediastinal beka nopathy. There is normal contrast opacification of the thoracic aorta. There is no evidence of thoracic aortic aneurysm or dissection. IMPRESSION: NO EVIDENCE OF PULMONARY EMBOLISM. RETICULAR NODULAR RIGHT SIDE PULMONARY INFILTRATE CONSISTENT WITH INFLAMMATORY DISEASE. THERE IS CLEARING OF A 1.5 CM NODULAR DENSITY IN THE RIGHT UPPER LOBE COMPARED TO OLD EXAM. THERE IS DECREASE IN THE RIGHT BRONCHIAL ADENOPATHY COMPARED TO OLD EXAM.
[2018-07-30] MEDS ORDERED: IPRATROPIUM-ALBUTEROL 3 ML NEB INHALATION PRN (18:36)
[2018-07-30] MEDS ORDERED: PNEUMONIA PROTOCOL UTILIZED 1 EACH MISC PO PRN (18:36)
[2018-07-30] MEDS ORDERED: LEVOFLOXACIN 750MG-D5W PMX 750 MG in DEXTROSE/WATER 1 150ML.BAG IVPB STA (18:36)
[2018-07-30] MEDS: IPRATROPIUM-ALBUTEROL 3 ML NEB INHALATION SCH (18:52)
[2018-07-30 20:07] LABS: Glucose,Whole Blood 145 mg/dL (75-99)
[2018-07-30 22:02] VITALS: BMI 29.7
[2018-07-30] MEDS ORDERED: MELATONIN 3 MG TABLET PO PRN (23:39)
[2018-07-30] MEDS ORDERED: AZITHROMYCIN 500 MG in SODIUM CHLORIDE 0.9% 250 ML IVPB SCH (23:45)
[2018-07-31] MEDS: SODIUM CHLORIDE 0.9% 1,000 ML IV STA (00:08)
[2018-07-31] MEDS: methylPREDNISolone SOD SUCCI 125 MG/2 ML VIAL IV SCH ×5 (00:08→23:30)
[2018-07-31] MEDS ORDERED: NON-FORMULARY DRUG (Omeprazole 20 MG) PO SCH (07:30)
[2018-07-31 07:44] LABS: Glucose,Whole Blood 124 mg/dL (75-99)
[2018-07-31] MEDS: INSULIN ASPART 100 UNIT/ML 1 ML 10 ML VIAL SQ SCH ×4 (07:59→21:15)
[2018-07-31] MEDS ORDERED: SYMBICORT 160-4.5 MCG INHALER INHALATION SCH (08:00)
[2018-07-31] MEDS: ASCORBIC ACID 500 MG TAB PO SCH (08:03)
[2018-07-31] MEDS: PANTOPRAZOLE 40 MG TABLET PO SCH (08:03)
[2018-07-31] MEDS: CALCIUM CARB-VIT D 250MG-125UN 1 EACH TAB PO SCH ×2 (08:03→20:28)
[2018-07-31] MEDS: ATORVASTATIN 20 MG TAB PO SCH (08:03)
[2018-07-31] MEDS: cycloSPORINE 0.05% OPHTH 0.4 ML DROPERETTE BOTH EYES SCH ×2 (08:04→20:27)
[2018-07-31] MEDS: ASPIRIN 81 MG PO SCH (08:04)
[2018-07-31] MEDS: HEPARIN SODIUM,PORCINE 5,000 UNIT/ML 1 ML VIAL SQ SCH ×2 (08:04→20:29)
[2018-07-31] MEDS: NICOTINE 14MG/24HR PATCH TRANSDERM SCH (08:04)
[2018-07-31] MEDS: FENOFIBRATE 160 MG TAB PO SCH (08:04)
[2018-07-31 08:29] LABS: Basophils % (A) 0 %; Eosinophils % (A) 0 %; HCT 40.3 % (39.0-53.0); HGB 12.8 gm/dL (13.0-17.5); Lymphocytes # (A) 0.9 k/uL (1.0-4.8); Lymphocytes % (A) 10 %; MCH 29.4 pg (25.0-35.0); MCHC 31.7 g/dL (31.0-37.0); MCV 92.7 fL (80.0-100.0); Mean Platelet Volume 7.4; Monocytes # (A) 0.2 k/uL (0-1.0); Monocytes % (A) 2 %; Neutrophils % (A) 87 %; Platelet Count 362 k/uL (150-450); RBC 4.35 m/uL (4.30-5.90); RDW 14.1 % (11.5-15.5); WBC 9.2 k/uL (3.8-10.6)
--- NOTE | 2018-07-31 08:30 | XR ---
EXAMINATION TYPE: XR chest 2V DATE OF EXAM: 07/31/2018 COMPARISON: Prior chest x-ray and CT 07/30/2018 HISTORY: Pneumonia TECHNIQUE: Frontal and lateral views of the chest are obtained. FINDINGS: Prominent lung volume could be indicative of underlying COPD. Cardiac mediastinal silhouett e, pulmonary vascularity and donal are stable. The nodular density at the level of the anterior right fifth rib corresponds to prior fracture. Interstitium is increased, bandlike densities again noted co mpatible with scarring in the right lung. No evident pneumothorax or pleural effusion. IMPRESSION: No acute cardiopulmonary process. Interstitial lung disease, emphysema.
[2018-07-31 08:48] LABS: Anion Gap 12 mmol/L; Blood Urea Nitrogen 20 mg/dL (9-20); Calcium 10.2 mg/dL (8.4-10.2); Carbon Dioxide 21 mmol/L (22-30); Chloride 102 mmol/L (98-107); Glucose 122 mg/dL (74-99); Potassium 5.3 mmol/L (3.5-5.1); Sodium 135 mmol/L (137-145)
[2018-07-31] MEDS ORDERED: cycloSPORINE 0.05% OPHTH 0.4 ML DROPERETTE BOTH EYES SCH (09:00)
[2018-07-31] MEDS ORDERED: ACIDOPH PARACASEI B LACTIS PO SCH (09:00)
[2018-07-31] MEDS ORDERED: NON-FORMULARY DRUG (Vitamin B Complex [Vitamin B Complex] 1 TAB) PO SCH (09:00)
--- NOTE | 2018-07-31 09:00 | HP ---
HISTORY AND PHYSICAL CHIEF COMPLAINTS: Shortness of breath and cough and weakness. HISTORY OF PRESENT ILLNESS: This is a 78-year-old gentleman with a past medical history of multiple medical problems including COPD, GERD, history of lung cancer, history of aortic aneurysm, history of MRSA being followed Dr. Silvia Mata in the outpatient setting, was complaining of weakness, shortness with cough for the past several days. The patient also feeling wiped out. Patient also has a night. The patient also white phlegm. The patient started on amoxicillin and patient has some diarrhea Zithromax also at this time. In fact, the patient came to [facility] right lower pneumonia suspected. The patient admitted for evaluation and treatment. There is no history of fever, chills, or rigors. No headache, loss of consciousness, or seizures. PAST MEDICAL HISTORY: History of COPD, GERD, DJD, history of persistent cough, history of lung cancer. MEDICATIONS PRIOR TO ADMISSION INCLUDE:: 1. Probiotic 1 tablet p.o. daily. 2. Turmeric 500 mg p.o. daily. 3. Vitamin B complex. 4. Ventolin 2.5 daily p.r.n. 5. Simvastatin 40 mg p.o. daily. 6. Fenofibrate 140 mg q.48 hours. 7. Restasis b.i.d. 8. Ultra K2 D3 one p.o. daily. 9. Prilosec 20 mg p.o. b.i.d. 10.Caltrate 1 tablet p.o. b.i.d. 11.Aspirin 81 mg p.o. daily. 12.Vitamin C 500 mg daily. ALLERGIES: AMOXICILLIN, ZITHROMAX. FAMILY HISTORY: History of cancer in the family. SOCIAL HISTORY: History of smoking. No history of alcohol intake. REVIEW OF SYSTEMS: ENT: Diminished hearing and diminished vision. CARDIOVASCULAR: No angina. RESPIRATION: As mentioned earlier. GI: No nausea. : No dysuria. NERVOUS SYSTEM: No numbness or weakness. ALLERGY/IMMUNOLOGY: No asthma or hayfever. MUSCULOSKELETAL: As mentioned earlier. HEMATOLOGY: No anemia. ENDOCRINE: No history of diabetes or hypothyroidism. CONSTITUTIONAL: As mentioned earlier. ENDOCRINE: No history of diabetes or hypothyroidism. DERMATOLOGY: Negative. RHEUMATOLOGY: Negative. PSYCHIATRY: As mentioned earlier. PHYSICAL EXAMINATION: Alert and oriented x3. Pulse is 112, blood pressure 118/68, respirations 16, temperature 97.0, pulse ox 97% on room air. HEENT: Conjunctivae normal. Oral mucosa moist. Neck is no jugular venous distention. No lymph node enlargement. CARDIOVASCULAR S1, S2, muffled. No S3, no S4. No murmur. RESPIRATION: Breathing efforts are markedly increased. Bilateral scattered rhonchi, no crackles. Respiratory wheezing is also present. ABDOMEN: Soft, nontender. No mass palpable. LEG: No edema, no swelling. NERVOUS SYSTEM: Higher functions as mentioned earlier. Moves all 4 limbs. No focal motor signs. LYMPHATICS: None. SKIN: No ulcer, no rash, no bleeding. LAB STUDIES: CBC with no D-dimer is 8.05. Sodium 136. CT scan, chest x-ray personally reviewed. Alkaline phosphatase 249. Influenza is negative. ASSESSMENT: 1. Chronic obstructive pulmonary disease acute exacerbation with possible right lower lobe pneumonia per consider gram-negative with failure of outpatient treatment. 2. Hyponatremia. 3. History of lung cancer. 4. History of gastroesophageal reflux disease. 5. History of degenerative joint disease. 6. History of persistent cough. 7. History of psoriasis. 8. History of aortic aneurysm. 9. History of methicillin-resistant Staphylococcus aureus.. 10.History of wedge resection, biopsy. 11.History of anxiety. 12.History of continued ongoing nicotine dependence. RECOMMENDATION: In this 78-year-old woman who presented with multiple complex medical issues, will monitor the patient closely, continue with the current management and symptomatic treatment. I would recommend broad-spectrum IV antibiotics, steroids, bronchodilators and closely follow with Pulmonary. Resume the home medications. Prognosis guarded because of multiple complex medical issues. Discussed with the family and further recommendation to follow. See orders for further details. MMODL / IJN: [id number] /
[2018-07-31] MEDS: IPRATROPIUM-ALBUTEROL 3 ML NEB INHALATION SCH ×4 (09:26→19:37)
[2018-07-31] MEDS: MULTIVITAMINS, THERA 1 EACH TAB PO SCH (11:14)
[2018-07-31 12:32] LABS: Glucose,Whole Blood 123 mg/dL (75-99)
[2018-07-31] MEDS: ACETAMINOPHEN TAB 500 MG TAB PO PRN (13:06)
[2018-07-31] MEDS: AZITHROMYCIN 500 MG TAB PO SCH (14:56)
[2018-07-31] MEDS ORDERED: LACTULOSE 20 GM/30 ML CUP PO SCH (16:15)
[2018-07-31] MEDS: DOCUSATE 100 MG CAP PO SCH ×2 (16:26→20:28)
[2018-07-31] MEDS: IBUPROFEN 400 MG TAB PO PRN (16:26)
--- NOTE | 2018-07-31 16:45 | CONS ---
CONSULTATION DATE OF SERVICE: 07/31/2018. HISTORY OF PRESENT ILLNESS: The patient is a 78-year-old male with history of lung cancer, COPD and asthma. The patient states that about 3 weeks ago he started with muscle aches all over his body. States he thinks he had some type of virus in his neck, upper respiratory area went and saw his primary care physician and been put on a Z-Jake of 2 pills and started to have diarrhea, so stopped the Z-jake, then his primary care physician put him on amoxicillin. Again, he just took a couple doses of that and stopped it, not because of diarrhea, but just because. The patient continued to feel worse, became very weak and short of breath. Subsequently, the patient came to the emergency room and was admitted for further evaluation treatment. AMOXICILLIN AND ZITHROMAX LISTED ALLERGIES. The patient is not allergic, just had side affects to the Zithromax. PAST MEDICAL HISTORY: Significant for COPD, asthma, lung cancer, GERD, degenerative joint disease, persistent cough, nicotine dependence, hernia repair, joint replacement, and other orthopedic surgery. The patient had a right wedge resection and biopsy in the right lung. He has had repair of deviated septum and has had surgery on his right foot for which he continues to wear a brace. FAMILY HISTORY: Father had lung cancer. History of mother is unavailable. SOCIAL HISTORY: Patient is a smoker and continues to smoke 1/2 to 1 pack per day. Denies alcohol intake. Denies any illicit drug use. REVIEW OF SYSTEMS: GENERAL: Patient denies any fever, did have chills during this illness over the last 3 weeks. HEENT: Positive for lightheadedness. Denies any headaches. Denies any acute visual changes. The patient is hard of hearing and does wear hearing aids. The patient denies any seasonal allergies. Denies any bloody nose or rhinitis. Does complain of sore throat. Negative difficulty swallowing. RESPIRATORY: Positive for shortness of breath or cough. Denies hemoptysis. CARDIOVASCULAR: Negative for chest pain or palpitations. GI: Negative for abdominal pain, nausea, vomiting. The patient continues to have somewhat loose stool, but not like the diarrhea he had previously. was negative for any dysuria or hematuria. Endocrine is negative for diabetes mellitus or thyroid disease. MUSCULOSKELETAL: Positive for degenerative joint disease. Neurologic is negative for any history of seizures. PSYCHIATRIC: Positive for anxiety. PHYSICAL EXAM: GENERAL: Pleasant 78-year-old male who is seen sitting up at the bedside, is awake, alert, comfortable at this time, feeling better since he has been in the hospital and has been treated with steroids. VITAL SIGNS: Temp 96.8, heart rate is 100, respiratory rate 22, blood pressure is 121/71, O2 sats 94% on room air. HEENT: Head is normocephalic, atraumatic. Pupils equal, round, reactive to light. Ears and nose, no discharge is noted. Mouth with moist mucous membranes. There is some mild pharyngeal erythema noted. NECK: Supple. Trachea is midline. LUNGS with coarse crackles at the left base, otherwise diminished with no clear rales or wheezes. HEART: S1, S2 heard. Not tachycardic. ABDOMEN: Soft. Bowel sounds are positive. EXTREMITIES: With no edema. Patient does have a brace on the right foot. NEUROLOGIC: Patient is awake, alert. LABS: White count 9.2, hemoglobin 12.8, hematocrit 40.3 with 362,000 platelets. Sodium is 135, potassium 5.3, chloride 102, CO2 is 21, anion gap is 12, BUN is 20, creatinine 0.55, glucose is 122, calcium is 10.2. Influenza type A and B not detected. IMAGING: Chest x-ray shows increased patchy infiltrate and atelectasis in the right lung compared to old exam. No evidence of pneumothorax. No heart failure. There are probably partly fibrotic changes. Abdominal x-ray, nonacute abdomen, bilateral renal calculi. Repeat chest x-ray today is no acute cardiopulmonary process, interstitial lung disease and emphysema and CTA of the chest shows mild pulmonary emphysema. Patchy subpleural reticular nodular infiltrates in the right upper lobe and the right lower lobe. No suspicious pulmonary mass. Heart size is normal. No pericardial effusion. There is no pleural effusion. No filling defects in the pulmonary arteries. There is a 1.5 x 1 cm enlarged right bronchial lymph node. There is no mediastinal adenopathy. There is clearing of a 1.5 cm nodular density in the right upper lobe compared to old exam. There is decrease in the right bronchial adenopathy compared old exam. IMPRESSION: 1. Acute exacerbation of chronic obstructive pulmonary disease and asthma. Doubt pneumonia. 2. History of lung cancer. 3. History of gastroesophageal reflux disease. 4. History of persistent cough. 5. Nicotine dependence. PLAN: Oxygen to maintain O2 sats greater than equal to 90%. Bronchodilators and will add aerosolized steroids. Continue the IV Solu-Medrol. Continue GI and DVT prophylaxis. Will add incentive spirometry and encourage use of with pulmonary hygiene. Thank you for the consultation. We will follow patient closely with you making further changes as necessary. I performed a History & Physical Examination of the patient and discussed their management with nurse practitioner. I reviewed the nurse practitioner's note and agree with the documented findings and plan of care. MMKEVINL / PAULN: [id number] /
[2018-07-31 17:42] LABS: Glucose,Whole Blood 131 mg/dL (75-99)
[2018-07-31] MEDS: LACTULOSE 20 GM/30 ML CUP PO SCH ×2 (17:42→20:28)
--- NOTE | 2018-07-31 18:51 | PN ---
PROGRESS NOTE DATE OF SERVICE: 07/31/2018 This 78-year-old gentleman who was admitted COPD, acute exacerbation, also had features of pneumonia. The patient failed outpatient treatment. The patient was started on bronchodilators and steroids. The patient is being closely monitored. Pulmonary is following the patient closely. Past medical history reviewed. REVIEW OF SYSTEMS: CARDIOVASCULAR SYSTEM: No angina, palpitations. RESPIRATORY SYSTEM: As mentioned earlier. GI: No nausea, vomiting. : No dysuria or retention. NERVOUS SYSTEM: No numbness, weakness. CURRENT MEDICATIONS: Reviewed. They include: 1. Tylenol 500 mg q.6 p.r.n. 2. DuoNeb q.i.d. and p.r.n. 3. Xanax 0.25 t.i.d. 4. Vitamin C 500 mg daily. 5. Aspirin 81 mg daily. 6. Lipitor 20 mg p.o. daily. 7. Zithromax 500 mg daily. 8. Pulmicort 0.5 b.i.d. 9. [place] with vitamin D. 10.Rocephin 1 gram IV daily. 11.Colace. 12.Lofibra. 13.Heparin 5000 units subcutaneously. 14.NovoLog. 15.Cephulac. 16.Melatonin. 17.Solu-Medrol. 18.Habitrol. 19.Protonix. PHYSICAL EXAMINATION: Patient is alert, oriented x3. Pulse is 113, blood pressure 121/70, respiration 22, temperature 97.8, pulse ox 94% on room air. HEENT: Conjunctivae normal. Oral mucosa moist. NECK: No jugular venous distention. No carotid bruit. No lymph node enlargement. CARDIOVASCULAR SYSTEM: S1, S2 muffled. RESPIRATORY SYSTEM: Breath sounds diminished at the bases. Bilateral scattered rhonchi and crackles. ABDOMEN: Soft, non-tender. No mass palpable. LEGS: No edema. No swelling. NERVOUS SYSTEM: Higher functions as mentioned earlier. Moves all 4 limbs. No focal motor or sensory deficit. LYMPHATICS: No lymph node palpable in neck, axillae or groin. SKIN: No ulcer, rash, bleeding. LABS: WBC 9.2, hemoglobin 12.8, sodium 135, potassium 5.3. ASSESSMENT: 1. Chronic obstructive pulmonary disease, acute exacerbation, with possible right lower lobe pneumonia. Consider gram-negative with failure of outpatient treatment, possibly community-acquired pneumonia. 2. Hyponatremia. 3. History of lung cancer. 4. History of gastroesophageal reflux disease. 5. History of degenerative joint disease. 6. History of persistent cough. 7. History of psoriasis. 8. History of aortic aneurysm. 9. History of methicillin-resistant Staphylococcus aeruginosa. 10.History of wedge resection and biopsy. 11.History of anxiety. 12.Continued ongoing nicotine dependence. RECOMMENDATIONS AND DISCUSSION: I recommend to continue current medication, continue with the monitoring, symptomatic treatment. At this time I recommend following the patient closely. Continue with the bronchodilators. Continue with empiric antibiotics. Also recommend serum mycoplasma antibodies and legionella antigens. Prognosis guarded because of multiple complex medical issues. Will follow closely with Pulmonary. Further recommendations to follow. MMODL / IJN: [id number] /
[2018-07-31] MEDS ORDERED: LEVOFLOXACIN 750 MG TAB PO SCH (19:00)
[2018-07-31] MEDS: BUDESONIDE 0.5 MG/2 ML NEBU INHALATION SCH (19:37)
[2018-07-31] MEDS: ALPRAZolam 0.25 MG TAB PO PRN (20:29)
[2018-07-31 21:09] LABS: Glucose,Whole Blood 189 mg/dL (75-99)
[2018-08-01] MEDS: ACETAMINOPHEN TAB 500 MG TAB PO PRN (01:33)
[2018-08-01] MEDS ORDERED: MORPHINE SULFATE 4 MG/ML SYRINGE IVP STA (04:46)
[2018-08-01] MEDS ORDERED: LIDOCAINE 5% PATCH TOPICAL ONE (05:00)
[2018-08-01] MEDS: methylPREDNISolone SOD SUCCI 125 MG/2 ML VIAL IV SCH (06:24)
[2018-08-01] MEDS: ALPRAZolam 0.25 MG TAB PO PRN ×2 (06:27→22:06)
[2018-08-01 07:51] LABS: Glucose,Whole Blood 162 mg/dL (75-99)
[2018-08-01] MEDS: INSULIN ASPART 100 UNIT/ML 1 ML 10 ML VIAL SQ SCH ×4 (08:13→22:06)
[2018-08-01] MEDS: PANTOPRAZOLE 40 MG TABLET PO SCH (08:13)
[2018-08-01] MEDS: ASCORBIC ACID 500 MG TAB PO SCH (08:15)
[2018-08-01] MEDS: ASPIRIN 81 MG PO SCH (08:16)
[2018-08-01] MEDS: cycloSPORINE 0.05% OPHTH 0.4 ML DROPERETTE BOTH EYES SCH ×2 (08:17→22:06)
[2018-08-01] MEDS: ATORVASTATIN 20 MG TAB PO SCH (08:17)
[2018-08-01] MEDS: CALCIUM CARB-VIT D 250MG-125UN 1 EACH TAB PO SCH ×2 (08:17→22:06)
[2018-08-01] MEDS: DOCUSATE 100 MG CAP PO SCH ×2 (08:18→22:06)
[2018-08-01] MEDS: HEPARIN SODIUM,PORCINE 5,000 UNIT/ML 1 ML VIAL SQ SCH ×2 (08:18→22:09)
[2018-08-01] MEDS: LACTULOSE 20 GM/30 ML CUP PO SCH ×4 (08:19→22:09)
[2018-08-01] MEDS: NICOTINE 14MG/24HR PATCH TRANSDERM SCH (08:19)
[2018-08-01] MEDS: IPRATROPIUM-ALBUTEROL 3 ML NEB INHALATION SCH ×4 (08:33→19:15)
[2018-08-01] MEDS: BUDESONIDE 0.5 MG/2 ML NEBU INHALATION SCH ×2 (08:33→19:15)
[2018-08-01] MEDS ORDERED: HYDROcodone/APAP 7.5-325MG 1 EACH TAB PO ONE (08:41)
[2018-08-01] MEDS: IBUPROFEN 400 MG TAB PO PRN (08:42)
[2018-08-01 09:25] LABS: Basophils % (A) 0 %; Eosinophils % (A) 0 %; HCT 38.3 % (39.0-53.0); HGB 12.1 gm/dL (13.0-17.5); Lymphocytes # (A) 0.8 k/uL (1.0-4.8); Lymphocytes % (A) 7 %; MCH 29.5 pg (25.0-35.0); MCHC 31.7 g/dL (31.0-37.0); MCV 93.2 fL (80.0-100.0); Mean Platelet Volume 7.6; Monocytes # (A) 0.5 k/uL (0-1.0); Monocytes % (A) 4 %; Neutrophils % (A) 88 %; Platelet Count 388 k/uL (150-450); RBC 4.11 m/uL (4.30-5.90); RDW 14.1 % (11.5-15.5); WBC 12.5 k/uL (3.8-10.6)
[2018-08-01 09:27] LABS: Anion Gap 11 mmol/L; Blood Urea Nitrogen 22 mg/dL (9-20); Calcium 9.6 mg/dL (8.4-10.2); Carbon Dioxide 24 mmol/L (22-30); Chloride 102 mmol/L (98-107); Glucose 129 mg/dL (74-99); Potassium 5.2 mmol/L (3.5-5.1); Sodium 137 mmol/L (137-145)
--- NOTE | 2018-08-01 10:14 | P.PN ---
Subjective Progress Note Date: 08/01/18 HPI: This patient is a 78-year-old male with history of lung cancer, COPD and asthma. The patient states that about 3 weeks ago he started with muscle aches all over his body. States he thinks he had some type of virus in his neck and upper respiratory area he went and saw his primary care physician and was put on a Z-Jake. He did take 2 of those pills and had diarrhea so he stopped the Z- Jake, then his primary care physician put him on amoxicillin. Again he just a couple doses of amoxicillin and stopped that as well not because of diarrhea but just because he wanted to. The patient continued to feel worse, became very weak and short of breath. He subsequently the patient came into the emergency room and was admitted for further evaluation and treatment. He does have a past medical history that is significant for COPD, asthma, lung cancer, GERD, DJD, persistent cough, nicotine dependence, hernia repair, joint replacement. The patient had a right wedge resection and biopsy of the right lung. He has had repair of deviated septum and surgery on his foot that he was a brace for. Patient is a smoker and continues to smoke half a pack to 1 pack per day. Denies any alcohol intake or illicit drug use. Objective - Vital Signs Vital signs: Vital Signs Temp 98.2 F 08/01/18 06:00 Pulse 100 08/01/18 08:48 Resp 20 08/01/18 06:00 BP 126/87 08/01/18 06:00 Pulse Ox 99 08/01/18 06:00 Intake & Output 07/31/18 08/01/18 08/01/18 18:59 06:59 18:59 Intake Total 240 640 240 Balance 240 640 240 Intake: Oral 240 640 240 Other: Voiding Method Toilet # Voids 2 1 # Bowel Movements 2 - Exam GENERAL EXAM: Alert, active, comfortable in no apparent distress. HEAD: Normocephalic. EYES: Normal reaction of pupils, equal size. NOSE: Clear with pink turbinates. THROAT: No erythema or exudates. NECK: No masses, no JVD. CHEST: No chest wall deformity. LUNGS: Improved aeration throughout with no rales or wheezes CVS: S1 and S2 normal with no audible mumurs, regular rhythm. ABDOMEN: No hepatosplenomegaly, normal bowel sounds, no guarding or rigidity. EXTREMITIES: No edema noted, pedal pulses palpable. Brace to right foot CENTRAL NERVOUS SYSTEM: No focal deficits, tone is normal in all 4 extremities. - Labs CBC & Chem 7: 08/01/18 08:25 08/01/18 08:25 Labs: Abnormal Lab Results - Last 24 Hours (Table) 07/31/18 07/31/18 07/31/18 Range/Units 12:27 17:26 21:07 WBC (3.8-10.6) k/uL RBC (4.30-5.90) m/uL Hgb (13.0-17.5) gm/dL Hct (39.0-53.0) % Neutrophils # (1.3-7.7) k/uL Lymphocytes # (1.0-4.8) k/uL Potassium (3.5-5.1) mmol/L BUN (9-20) mg/dL Creatinine (0.66-1.25) mg/dL Glucose (74-99) mg/dL POC Glucose (mg/dL) 123 H 131 H 189 H (75-99) mg/dL 08/01/18 08/01/18 08/01/18 Range/Units 07:38 08:25 08:25 WBC 12.5 H (3.8-10.6) k/uL RBC 4.11 L (4.30-5.90) m/uL Hgb 12.1 L (13.0-17.5) gm/dL Hct 38.3 L (39.0-53.0) % Neutrophils # 11.0 H (1.3-7.7) k/uL Lymphocytes # 0.8 L (1.0-4.8) k/uL Potassium 5.2 H (3.5-5.1) mmol/L BUN 22 H (9-20) mg/dL Creatinine 0.56 L (0.66-1.25) mg/dL Glucose 129 H (74-99) mg/dL POC Glucose (mg/dL) 162 H (75-99) mg/dL Microbiology - Last 24 Hours (Table) 07/31/18 19:45 Gram Stain - Preliminary Sputum Sputum Culture - Preliminary 07/30/18 15:50 Blood Culture - Preliminary Blood No Growth after 24 hours Assessment and Plan Assessment: Assessment Acute exacerbation of COPD Acute exacerbation of moderate chronic persistent asthma doubt pneumonia History of lung cancer, status post right wedge resection History of GERD History of persistent chronic cough Nicotine dependence Plan Medications have been reviewed and will be continued as ordered. Discontinue steroids Continue with pulmonary hygiene, coughing and deep breathing exercises, and supportive care. Supplemental oxygen to maintain oxygen saturations of 92% or better. Continue nebulizer treatments. Encourage incentive spirometer GI and DVT prophylaxis. We will continue to monitor labs/results and adjust treatment as necessary. Further recommendations pending. I, the signing physician performed an examination of the patient, discussed and directed their management with the nurse practitioner. I have reviewed the nurse practitioner's note and agree with the documented findings, orders and plan of care.
[2018-08-01] MEDS ORDERED: HYDROcodone/APAP 7.5-325MG 1 EACH TAB PO PRN (11:05)
[2018-08-01] MEDS: MULTIVITAMINS, THERA 1 EACH TAB PO SCH (11:46)
[2018-08-01 12:40] LABS: Glucose,Whole Blood 114 mg/dL (75-99)
[2018-08-01] MEDS: AZITHROMYCIN 500 MG TAB PO SCH (17:04)
[2018-08-01 17:36] LABS: Glucose,Whole Blood 130 mg/dL (75-99)
--- NOTE | 2018-08-01 17:43 | PN ---
PROGRESS NOTE DATE OF SERVICE: 08/01/2018 This 78-year-old gentleman who was admitted with COPD, acute exacerbation, also had pneumonia. Patient is improving significantly. Patient has some constipation. The medications were adjusted. No chest pain. No palpitations. No fever. On exam, alert and oriented x3. The pulse is 90, blood pressure 126/87, respiration 20, temperature 98.2, pulse ox 99% on room air. HEENT: Conjunctivae normal. NECK: No jugular venous distention. CARDIOVASCULAR SYSTEM: S1, S2 muffled. RESPIRATORY SYSTEM: Breath sounds diminished at the bases. A few scattered rhonchi and crackles. ABDOMEN: Soft, non-tender. LEGS: No edema. No swelling. NERVOUS SYSTEM: No focal deficit. LABS: WBC 12.5, hemoglobin 12.1. ASSESSMENT: 1. Chronic obstructive pulmonary disease, acute exacerbation, with possible right lower lobe pneumonia. Consider gram-negative and failure of outpatient treatment, possibly community-acquired pneumonia. 2. Hyponatremia. 3. History of lung cancer. 4. History of gastroesophageal reflux disease. 5. History of degenerative joint disease. 6. History of persistent cough. 7. History of psoriasis. 8. History of aortic aneurysm. 9. History of methicillin-resistant Staphylococcus aeruginosa. 10.History of wedge resection and biopsy. 11.History of anxiety. 12.Continued ongoing nicotine dependence. RECOMMENDATIONS AND DISCUSSION: I recommend to continue current medication, continue symptomatic treatment. Otherwise, continue with bronchodilators, antibiotics, lactulose and Colace for constipation. We will continue to monitor. Further recommendations to follow. MMODL / IJN: [id number] /
[2018-08-01 20:54] LABS: Glucose,Whole Blood 137 mg/dL (75-99)
[2018-08-02 05:59] LABS: Mycoplasma IgM Antibody 0.25 INDEX (<=0.90)
[2018-08-02] MEDS: BUDESONIDE 0.5 MG/2 ML NEBU INHALATION SCH (07:16)
[2018-08-02] MEDS: IPRATROPIUM-ALBUTEROL 3 ML NEB INHALATION SCH ×2 (07:16→10:59)
[2018-08-02 07:21] VITALS: BP 109/70; RESP 18; TEMP 98.3
[2018-08-02 07:27] LABS: Glucose,Whole Blood 166 mg/dL (75-99)
[2018-08-02 08:14] LABS: Basophils % (A) 0 %; Eosinophils # (A) 0.1 k/uL (0-0.7); Eosinophils % (A) 1 %; HCT 41.6 % (39.0-53.0); HGB 13.2 gm/dL (13.0-17.5); Lymphocytes # (A) 1.2 k/uL (1.0-4.8); Lymphocytes % (A) 13 %; MCH 29.3 pg (25.0-35.0); MCHC 31.8 g/dL (31.0-37.0); MCV 92.3 fL (80.0-100.0); Monocytes # (A) 0.6 k/uL (0-1.0); Monocytes % (A) 7 %; Neutrophils # (A) 7.2 k/uL (1.3-7.7); Neutrophils % (A) 78 %; Platelet Count 365 k/uL (150-450); RDW 14.1 % (11.5-15.5); WBC 9.2 k/uL (3.8-10.6)
[2018-08-02 08:31] LABS: Anion Gap 8 mmol/L; Blood Urea Nitrogen 21 mg/dL (9-20); Carbon Dioxide 28 mmol/L (22-30); Chloride 101 mmol/L (98-107); Glucose 108 mg/dL (74-99); Potassium 4.4 mmol/L (3.5-5.1); Sodium 137 mmol/L (137-145)
[2018-08-02] MEDS: INSULIN ASPART 100 UNIT/ML 1 ML 10 ML VIAL SQ SCH ×2 (08:32→13:40)
[2018-08-02] MEDS: NICOTINE 14MG/24HR PATCH TRANSDERM SCH (08:32)
[2018-08-02] MEDS: ASCORBIC ACID 500 MG TAB PO SCH (08:33)
[2018-08-02] MEDS: PANTOPRAZOLE 40 MG TABLET PO SCH (08:33)
[2018-08-02] MEDS: CALCIUM CARB-VIT D 250MG-125UN 1 EACH TAB PO SCH (08:33)
[2018-08-02] MEDS: ASPIRIN 81 MG PO SCH (08:33)
[2018-08-02] MEDS: cycloSPORINE 0.05% OPHTH 0.4 ML DROPERETTE BOTH EYES SCH (08:33)
[2018-08-02] MEDS: ATORVASTATIN 20 MG TAB PO SCH (08:33)
[2018-08-02] MEDS: LACTULOSE 20 GM/30 ML CUP PO SCH ×2 (08:34→13:40)
[2018-08-02] MEDS: HEPARIN SODIUM,PORCINE 5,000 UNIT/ML 1 ML VIAL SQ SCH (08:34)
[2018-08-02] MEDS: FENOFIBRATE 160 MG TAB PO SCH (08:34)
[2018-08-02] MEDS: DOCUSATE 100 MG CAP PO SCH (08:34)
[2018-08-02] MEDS: ALPRAZolam 0.25 MG TAB PO PRN (08:35)
[2018-08-02 11:09] VITALS: PULSE 82
[2018-08-02] MEDS: MULTIVITAMINS, THERA 1 EACH TAB PO SCH (12:16)
[2018-08-02 12:37] LABS: Glucose,Whole Blood 92 mg/dL (75-99)
--- NOTE | 2018-08-02 13:45 | P.PN ---
Subjective Progress Note Date: 08/02/18 HPI: This patient is a 78-year-old male with history of lung cancer, COPD and asthma. The patient states that about 3 weeks ago he started with muscle aches all over his body. States he thinks he had some type of virus in his neck and upper respiratory area he went and saw his primary care physician and was put on a Z-Jake. He did take 2 of those pills and had diarrhea so he stopped the Z- Jake, then his primary care physician put him on amoxicillin. Again he just a couple doses of amoxicillin and stopped that as well not because of diarrhea but just because he wanted to. The patient continued to feel worse, became very weak and short of breath. He subsequently the patient came into the emergency room and was admitted for further evaluation and treatment. He does have a past medical history that is significant for COPD, asthma, lung cancer, GERD, DJD, persistent cough, nicotine dependence, hernia repair, joint replacement. The patient had a right wedge resection and biopsy of the right lung. He has had repair of deviated septum and surgery on his foot that he was a brace for. Patient is a smoker and continues to smoke half a pack to 1 pack per day. Denies any alcohol intake or illicit drug use. Interval history: 08/01/2018patient is being seen examined and evaluated today on rounds. He is resting up in bed on room air. States his shortness of breath has improved greatly. He has been doing his nebulizer treatments and those have been helping as well. Sputum sample is pending. He is coughing less and is less congested as well. He states he is no longer wheezing. 08/02/2018patient being seen examined and evaluated today on rounds. He continues on room air. His shortness of breath has greatly improved as well. He denies any wheezing or noisy breathing. States he is feeling much better. He is requesting to go home. is at bedside updated on plan of care. He does understand the importance of following up in the outpatient setting as well. Objective - Vital Signs Vital signs: Vital Signs Temp 98.3 F 08/02/18 07:00 Pulse 82 08/02/18 11:09 Resp 18 08/02/18 07:00 BP 109/70 08/02/18 07:00 Pulse Ox 95 08/02/18 07:00 Intake & Output 1208/02/18 08/02/18 18:59 06:59 18:59 Intake Total 720 500 240 Balance 720 500 240 Weight 86 kg Intake: Oral 720 500 240 Other: Voiding Method Toilet # Voids 2 1 - Exam GENERAL EXAM: Alert, active, comfortable in no apparent distress. HEAD: Normocephalic. EYES: Normal reaction of pupils, equal size. NOSE: Clear with pink turbinates. THROAT: No erythema or exudates. NECK: No masses, no JVD. CHEST: No chest wall deformity. LUNGS: Improved aeration throughout with no rales or wheezes CVS: S1 and S2 normal with no audible mumurs, regular rhythm. ABDOMEN: No hepatosplenomegaly, normal bowel sounds, no guarding or rigidity. EXTREMITIES: No edema noted, pedal pulses palpable. Brace to right foot CENTRAL NERVOUS SYSTEM: No focal deficits, tone is normal in all 4 extremities. - Labs CBC & Chem 7: 08/02/18 08:01 08/02/18 08:01 Labs: Abnormal Lab Results - Last 24 Hours (Table) 07/31/18 08/01/18 08/01/18 Range/Units 07:55 17:07 20:20 BUN (9-20) mg/dL Creatinine (0.66-1.25) mg/dL Glucose (74-99) mg/dL POC Glucose (mg/dL) 130 H 137 H (75-99) mg/dL Mycoplasma pneumon IgG 1.47 H (<=0.90) INDEX 08/02/18 08/02/18 Range/Units 06:58 08:01 BUN 21 H (9-20) mg/dL Creatinine 0.56 L (0.66-1.25) mg/dL Glucose 108 H (74-99) mg/dL POC Glucose (mg/dL) 166 H (75-99) mg/dL Mycoplasma pneumon IgG (<=0.90) INDEX Microbiology - Last 24 Hours (Table) 07/30/18 15:50 Blood Culture - Preliminary Blood No Growth after 48 hours Assessment and Plan Assessment: Assessment Acute exacerbation of COPD Acute exacerbation of moderate chronic persistent asthma doubt pneumonia History of lung cancer, status post right wedge resection History of GERD History of persistent chronic cough Nicotine dependence Plan Patient cleared for discharge from a pulmonary standpoint Medications have been reviewed and will be continued as ordered. Continue with pulmonary hygiene, coughing and deep breathing exercises, and supportive care. Supplemental oxygen to maintain oxygen saturations of 92% or better. Continue nebulizer treatments. Encourage incentive spirometer GI and DVT prophylaxis. We will continue to monitor labs/results and adjust treatment as necessary. I, the signing physician performed an examination of the patient, discussed and directed their management with the nurse practitioner. I have reviewed the nurse practitioner's note and agree with the documented findings, orders and plan of care.
--- NOTE | 2018-08-02 14:03 | CDI ---
Documentation Clarification Form Date: 08/02/18 From: Yamilet Parkinson RN Admit Date: 07/30/2018 6:38:00 PM Patient Name: Ethna Beckett Visit Number: [id number] ATTENTION: The Clinical Documentation Specialists (CDI) and [facility] Coding Staff appreciate your assistance in clarifying documentation. Please respond to the clarification below the line at the bottom and electronically sign. The CDI & [facility] Coding staff will review the response and follow-up if needed. Please note: Queries are made part of the Legal Health Record. If you have any questions, please contact the author of this message via ITS. Dr. Patricia Bragg, Can you please render your opinion on the following documentation? Presented to ED with generalized weakness, fever, chills, sweats, tachycardia and lack of energy. Patient admitted with Pneumonia and Acute exacerbation of COPD. History/Risk Factors: COPD, lung cancer, aortic aneurysm, MRSA, persistent cough , anxiety, smoker Clinical Indicators: WBC on admission 7.9 , On 08/01: 12.5 Lactic acid: not drawn Blood cultures: no growth after 48 hours Sputum Culture: moderate gram positive Cocci, rare gram negative Bacilli Vitals signs on admission: T 98.4, P 114, R 18, 153/80, 97% RA Treatment: ID Consult: None Antibiotics: Azithromycin PO, Ceftriaxone IVPB, Levofloxacin IVPB In your professional opinion, please clarify if these findings signify one of the following conditions, whether the condition is POA, and cause, if known: Condition Sepsis ruled in Sepsis ruled out Other, please specify Unable to determine Present on Admission Yes No Identify the (suspected) organism Sepsis ruled out MTDD
--- NOTE | 2018-08-02 20:56 | DS ---
DISCHARGE SUMMARY FINAL DIAGNOSES: 1. Chronic obstructive pulmonary disease acute exacerbation with possible right lower lobe pneumonia possibly gram-negative with failure of outpatient treatment. 2. Hyponatremia. 3. History of lung cancer. 4. History of gastroesophageal reflux disease. 5. History of degenerative joint disease. 6. History of persistent cough. 7. History psoriasis. 8. History of aortic aneurysm. 9. History of MRSA. 10.History of in the biopsy. 11.History of anxiety. 12.History of ongoing nicotine dependence. DISCHARGE DISPOSITION: The patient will be discharge in stable condition with guarded prognosis. HISTORY OF PRESENT ILLNESS: This 78-year-old gentleman with past medical history of COPD and pneumonia. Patient treated with antibiotic and bronchodilators. Patient improved significantly. From the pulmonary point of view, Dr. Carl Fregoso saw the patient. On exam, vitals are stable. Cardiovascular: S1, S2. Abdomen: Soft. Nervous System: No focal deficits. The patient is discharged in stable condition with guarded prognosis with the following advice: 1. Cardiac diet. 2. Activity limited until follow up. 3. Follow up with Dr. Silvia Mata in 2 to 3 days. 4. Follow with Dr. Carl Fregoso in 2 weeks. MEDICATIONS: 1. Vitamin C 500 mg b.i.d. 2. Aspirin 81 mg. 3. Calcium carbonate with vitamin D 1 p.o. daily. 4. Cyclosporine one application b.i.d. 5. Fenofibrate 140 mg q.48h hours. 6. Probiotic 1 p.o. daily. 7. Prilosec 20 mg b.i.d. 8. simvastatin 40 mg daily. 9. Turmeric 500 mg b.i.d. 10.Ultra K2, D3 1 p.o. daily. 11.Vitamin B complex 1 p.o. daily. 12.Tylenol 500 mg q.6h p.r.n. 13.Albuterol nebulizers 2.5 q.i.d. and p.r.n. 14.Xanax 0.5 t.i.d. p.r.n. 15.Zithromax 500 mg p.o. daily for 5 days. 16.Ceftin 500 mg p.o. daily for 5 days. 17.Colace 100 mg p.o. daily. 18.Motrin 400 mg q.8h p.r.n. 19.Lactulose p.r.n. 20.Habitrol 14 daily. Followup labs with CBC and BMP with the primary physician. MMODL / IJN: [id number] / [place]
== END 2018-08-02 14:39 | disposition home or self-care (01) | DRG 178 ==
LOC: EC 14:47 → 4MS4W 18:38
PROVIDERS: ADMIT Hospitalist; ATTEND Hospitalist
DX: J15.6 Pneumonia due to other Gram-negative bacteria (principal); E87.1 Hypo-osmolality and hyponatremia; J44.0 Chronic obstructive pulmonary disease with (acute) lower respiratory infection; J44.1 Chronic obstructive pulmonary disease with (acute) exacerbation; F17.210 Nicotine dependence, cigarettes, uncomplicated; K21.9 Gastro-esophageal reflux disease without esophagitis; K59.00 Constipation, unspecified; Z79.82 Long term (current) use of aspirin; Z80.1 Family history of malignant neoplasm of trachea, bronchus and lung; Z80.51 Family history of malignant neoplasm of kidney; Z85.118 Personal history of other malignant neoplasm of bronchus and lung; Z85.46 Personal history of malignant neoplasm of prostate; Z86.14 Personal history of Methicillin resistant Staphylococcus aureus infection; Z86.79 Personal history of other diseases of the circulatory system; H91.90 Unspecified hearing loss, unspecified ear; Z79.899 Other long term (current) drug therapy; L40.9 Psoriasis, unspecified; F41.9 Anxiety disorder, unspecified; M19.90 Unspecified osteoarthritis, unspecified site
CPT/HCPCS: 36415; 71046; 71275; 74019; 80048; 80053; 82550; 82553; 83735; 83880; 84484; 85025; 85379; 85610; 85730; 86738; 87040; 87070; 87205; 87449; 87502; 94640; 94760; 96365; 96375; 99285